=== PATIENT | female | born 1980 | race American Indian/Alaskan Native ===

== ENCOUNTER 2018-08-26 14:50 | Inpatient (IN) | payer BC, OTHER ==
[2018-08-26 15:53] LABS: SQUAMOUS EPITHIAL 1 /hpf (0-5); URINE BACTERIA RARE (<OCC); URINE BILIRUBIN NEGATIVE (NEGATIVE); URINE BLOOD NEGATIVE (NEGATIVE); URINE CLARITY Clear (Clear); URINE COLOR Yellow (YELLOW); URINE GLUCOSE (UA) NORMAL (Normal); URINE LEUKOCYTE ESTERASE TRACE Leu/uL (Negative); URINE PROTEIN NEGATIVE (NEGATIVE); URINE UROBILINOGEN NORMAL mg/dL (0.2-1.0)
[2018-08-26 16:01] LABS: BASO % 0.8 % (0.0-2.0); EOS # 0.3 K/uL (0.0-0.7); EOS % 4.7 % (0.0-4.0); HEMOGLOBIN 11.6 g/dL (11.0-16.0); LYMPH # 2.4 K/uL (1.0-4.3); LYMPH % 39.5 % (20.0-40.0); MEAN CELL VOLUME 84.7 fL (81.0-99.0); MEAN CORPUSCULAR HEMOGLOBIN 27.3 pg (27.0-31.0); MEAN CORPUSCULAR HGB CONC 32.2 g/dL (33.0-37.0); MEAN PLATELET VOLUME 8.3 fL (7.2-11.7); MONO # 0.5 K/uL (0.0-0.8); MONO % 8.6 % (0.0-10.0); NEUT # 2.9 K/uL (1.8-7.0); NEUT % 46.4 % (50.0-75.0); RBC 4.24 Mil/uL (3.80-5.20); RED CELL DISTRIBUTION WIDTH 15.7 % (11.5-14.5); WHITE BLOOD COUNT 6.1 K/uL (4.8-10.8)
[2018-08-26 16:14] LABS: BARBITURATES, UR NEGATIVE (NEGATIVE); BENZODIAZEPINES, UR NEGATIVE (NEGATIVE); PHENCYCLIDINE, UR NEGATIVE (NEGATIVE)
[2018-08-26 16:17] LABS: ALB/GLOB RATIO 1.4 (1.0-2.1); ALBUMIN 4.6 g/dL (3.5-5.0); ALT/SGPT 11 U/L (9-52); AST/SGOT 21 U/L (14-36); BLOOD UREA NITROGEN 16 mg/dL (7-17); CALCIUM 8.9 mg/dl (8.6-10.4); GFR NON-AFRICAN AMERICAN > 60
--- NOTE | 2018-08-26 16:25 | C.PDOC ---
History Of Present Illness 38 y/o female presents to the ED, sent by PMD for evaluation of feeling depressed and suicidal since 1 week ago. Denies any homicidal ideation. Denies drug use. Patient is unsure what may have triggered symptoms. She otherwise has no medical complaints. Time Seen by Provider: 08/26/18 15:27 Chief Complaint (Nursing): Psychiatric Evaluation History Per: Patient History/Exam Limitations: no limitations Onset/Duration Of Symptoms: Days Current Symptoms Are (Timing): Still Present Associated Symptoms: Depression, Suicidal Thoughts Involuntary Hold By: None Past Medical History Reviewed: Historical Data, Nursing Documentation, Vital Signs Vital Signs: Last Vital Signs Temp 97.6 F 08/26/18 15:04 Pulse 75 08/26/18 15:04 Resp 18 08/26/18 15:04 BP 137/85 08/26/18 15:04 Pulse Ox 97 08/26/18 15:04 - Medical History PMH: Anemia, Back Problems, Deep Vein Thrombosis, Hiatal Hernia, Hypercholesterolemia, Chronic Kidney Disease, Seizures (PSEUDOSEIZURES) Denies: Depression Surgical History: Endoscopy - [facility] Procedures CENTRAL VENOUS CATHETER PLACEMENT WITH GUIDANCE (02/15/15) DX ULTRASOUND-HEAD/NECK (07/28/14) ESOPHAGOGASTRODUODENOSCOPY [EGD] W/CLOSED BIOPSY (08/01/14) INJECT/INFUSE NEC (03/09/14) INJECT/INFUSE THROMBOLYTIC AGENT (02/25/15) OTH LYSIS-PERITONEAL ADHES (04/13/15) OTH REMOVE BOTH OVARIES/TUBES (04/13/15) OTHER AND UNSPECIFIED SUBTOTAL ABDOMINAL HYSTERECTOMY (04/13/15) PACKED CELL TRANSFUSION (04/13/15) PERCUTAN NEEDLE BX OF THYROID GLAND (07/28/14) URETERAL CATHETERIZATION (04/13/15) Family History: States: Unknown Family Hx - Social History Hx Tobacco Use: No Hx Alcohol Use: No Hx Substance Use: Yes - Immunization History Hx Tetanus Toxoid Vaccination: No Hx Influenza Vaccination: Yes Hx Pneumococcal Vaccination: No Review Of Systems Except As Marked, All Systems Reviewed And Found Negative. Constitutional: Negative for: Fever Cardiovascular: Negative for: Chest Pain Respiratory: Negative for: Shortness of Breath Gastrointestinal: Negative for: Vomiting, Diarrhea Neurological: Negative for: Weakness, Headache Psych: Positive for: Depression, Suicidal ideation Physical Exam - Physical Exam Appears: Well, Non-toxic, No Acute Distress Skin: Warm, Dry Head: Atraumatic, Normacephalic Eye(s): bilateral: Normal Inspection, PERRL, EOMI Neck: Normal ROM Chest: Symmetrical Cardiovascular: Rhythm Regular Respiratory: Normal Breath Sounds, No Accessory Muscle Use, Other (No respiratory distress) Gastrointestinal/Abdominal: Soft, No Tenderness, No Distention Extremity: Bilateral: Atraumatic, Normal Color And Temperature Neurological/Psych: Oriented x3 ED Course And Treatment - Laboratory Results Result Diagrams: 08/26/18 15:56 08/26/18 15:56 Lab Results: Total Bilirubin 0.3 mg/dL (0.2-1.3) 08/26/18 15:56 AST 21 U/L (14-36) 08/26/18 15:56 ALT 11 U/L (9-52) 08/26/18 15:56 Alkaline Phosphatase 54 U/L (38-126) 08/26/18 15:56 Total Protein 7.9 g/dL (6.3-8.3) 08/26/18 15:56 Albumin 4.6 g/dL (3.5-5.0) 08/26/18 15:56 Globulin 3.3 gm/dL (2.2-3.9) 08/26/18 15:56 Albumin/Globulin Ratio 1.4 (1.0-2.1) 08/26/18 15:56 Urine Color Yellow (YELLOW) 08/26/18 15:44 Urine Clarity Clear (Clear) 08/26/18 15:44 Urine pH 6.0 (5.0-8.0) 08/26/18 15:44 Ur Specific [place] 1.018 (1.003-1.030) 08/26/18 15:44 Urine Protein Negative mg/dL (NEGATIVE) 08/26/18 15:44 Urine Glucose (UA) Normal mg/dL (Normal) 08/26/18 15:44 Urine Ketones Negative mg/dL (NEGATIVE) 08/26/18 15:44 Urine Blood Negative (NEGATIVE) 08/26/18 15:44 Urine Nitrate Negative (NEGATIVE) 08/26/18 15:44 Urine Bilirubin Negative (NEGATIVE) 08/26/18 15:44 Urine Urobilinogen Normal mg/dL (0.2-1.0) 08/26/18 15:44 Ur Leukocyte Esterase Trace Isai/uL (Negative) 08/26/18 15:44 Urine WBC (Auto) 1 /hpf (0-5) 08/26/18 15:44 Ur Squamous Epith Cells 1 /hpf (0-5) 08/26/18 15:44 Urine Bacteria Rare (<OCC) 08/26/18 15:44 O2 Sat by Pulse Oximetry: 97 (RA) Pulse Ox Interpretation: Normal Medical Decision Making Medical Decision Making: Impression: Depression Plan: Labs ordered for medical clearance. rehabilitation worker to evaluate patient in the ED. Labs reviewed, U-tox negative. 16:40 Patient is medically cleared. Still pending final disposition from crisis Disposition Discussed With Dr.: Katelyn Jorgensen Doctor Will See Patient In The: Hospital Counseled Patient/Family Regarding: Studies Performed, Diagnosis - Disposition Disposition: HOSPITALIZED Disposition Time: 19:02 Condition: FAIR Forms: [facility] (Polish) - Clinical Impression Clinical Impression: Depression - Scribe Statement The provider has reviewed the documentation as recorded by the Yasmany Lopez Provider Attestation: All medical record entries made by the Yasmany were at my direction and personally dictated by me. I have reviewed the chart and agree that the record accurately reflects my personal performance of the history, physical exam, medical decision making, and the department course for this patient. I have also personally directed, reviewed, and agree with the discharge instructions and disposition.
[2018-08-26 16:41] LABS: OPIATES, UR NEGATIVE (NEGATIVE)
--- NOTE | 2018-08-26 22:30 | PCM.BM ---
<Gustavo James - Last Filed: 08/26/18 22:28> Treatment Plan Problems - Problems identified on initial assessmt Depression Date Initiated: 08/26/18 Time Initiated: 22:28 Assessment reference: NA Status: Active Suicidal Ideation Date Initiated: 08/26/18 Time Initiated: 22:29 Assessment reference: NA Status: Active Treatment assets and liabiliti Patient Assests: cooperative, self-reliant, ADL independent, negotiates basic needs, financial stabiity, cognitively intact Patient Liabilities: relationship conflicts (), substance abuse (Marijuana), medical problems (Total thyroidectomy, thyroid Cancer) - Milieu Protocol Maintain good personal hygiene: daily Encourage regular showers, daily Remind patient to perform daily oral care, every shift Assist patient to perform ADL's Conduct patient checks and document Observation sheet: Q15 minutes (For safety) Maintain personal safety: every shift Educate patient to report safety concerns to staff, every shift Monitor environment for contraband/sharps Medication safety: Monitor for expected outcome, potential side effects: every shift, Assess barriers to learning: every shift, Assess readiness for medication education: every shift <Mariel Neil - Last Filed: 08/27/18 14:10> Family Contact Family involvement: Famliy/SO not involved - Goals for Treatment Patient goals for treatment: "I need a therapist." Discharge/Continuing Care - Education Needs Education Needs: Patient Medication, Patient Coping Skills - Discharge Discharge Criteria: Tolerates medication w/o severe side effects, Reduction of target symptoms Discharge to:: Home - Treatment Team Participation Discussed with Family/SO: No Was Patient/Family/SO present at Treatment Team Meeting: Yes
[2018-08-27] MEDS: Levothyroxine 100 MCG TAB PO SCH (06:40)
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
[2018-08-27] MEDS: buPROPion 150 mg/24 Hours XL Tab PO SCH (12:20)
[2018-08-28] MEDS: Levothyroxine 100 MCG TAB PO SCH (06:39)
[2018-08-28] MEDS: buPROPion 150 mg/24 Hours XL Tab PO SCH (10:16)
--- NOTE | 2018-08-28 10:20 | PCM.PYCHPN ---
Psychiatric Progress Note - Psychiatric Progress Note Patient seen today, length of contact: 15 min Patient Chief Complaint: I am still feeling down Problems Identified/Issues Discussed: Patient seen and evaluated, chart reviewed and discussed with staff. Patient still reports depressed mood and at times feelings of hopelessness and helplessness. She reports improvement in sleep and appetite. She remained isolative and withdrawn and confined to room. She is taking medication but denies any side effects Supportive therapy was given Medication Change: Yes Medical Record Reviewed: Yes Mental Status Examination - Cognitive Function Orientation: Person, Place, Situation, Time Memory: Intact Attention: WNL Concentration: Poor Association: WNL Fund of Knowledge: Poor - Mood Mood: Depressed, Anxious - Affect Affect: Broad - Speech Speech: Soft - Formal Thought Process Formal Thought Process: No Impairment - Suicidal Ideation Suicidal Ideation: No - Homicidal Ideation Homicidal Ideation: No Goal/Treatment Plan - Goal/Treatment Plan Need for Continued Stay: Severe depression anxiety, Severe functional impairment Progress Toward Problem(s) and Goals/Treatment Plan: Major depression, single, severe Wellbutrin for depression Continue Levothyroxine 100mg for hypothyroidism 2/2 thyroidectomy As need medications Atarax, Motrin, Trazodone, and Ambien All risks, benefits and alternatives of the meds discussed, and the pt agreed and understood. Attend groups and activities Individual therapy daily Psychoeducation and support daily Encourage compliance with meds and after care Refer to outpatient program at [facility] Teach healthy lifestyle methods, i.e. diet, exercise, meditation Smoking cessation and patch if needed - Smoking Cessation Smoking Cessation Initiated: No
[2018-08-28 16:16] VITALS: O2SAT 82
[2018-08-29] MEDS: Levothyroxine 100 MCG TAB PO SCH (06:07)
[2018-08-29] MEDS: buPROPion 150 mg/24 Hours XL Tab PO SCH (09:37)
--- NOTE | 2018-08-29 15:24 | PCM.PYCHPN ---
Psychiatric Progress Note - Psychiatric Progress Note Patient seen today, length of contact: 15 min Patient Chief Complaint: I am feeling much better. Can I be discharged today. Problems Identified/Issues Discussed: Patient seen, chart reviewed, case discussed with the staff. Issues related to illness and treatment were discussed with the patient and staff. Reported compliant with treatment with no adverse effects. Tolerating treatment very well. Patient was calm and cooperative. Awake, alert and oriented x3. Mood reported as good. Affect appropriate. Patient already has signed 48-hour notice for discharge from the hospital, which will end tomorrow. Requested to reascend the 48-hour notice to stay and complete treatment, patient refused. At the time of her evaluation, patient denied any delusions, auditory or visual hallucinations, no suicidal ideations or homicidal ideations. Medical Problems: Hypothyroidism secondary to thyroidectomy Diagnostic Results: Reviewed DSM 5 Symptoms Update: Some improvement with treatment. Medication Change: No Medical Record Reviewed: Yes Mental Status Examination - Cognitive Function Orientation: Person, Place, Situation, Time Memory: Intact Attention: WNL Concentration: WNL Association: WN Fund of Knowledge: [facility] Decription of patient's judgement and insights: Poor - Mood Mood: Neutral - Affect Affect: Other (Appropriate) - Speech Speech: Soft - Formal Thought Process Formal Thought Process: No Impairment Psychotic Thoughts and Behaviors: None - Suicidal Ideation Suicidal Ideation: No - Homicidal Ideation Homicidal Ideation: No Goal/Treatment Plan - Goal/Treatment Plan Need for Continued Stay: Discharge may exacerbated symptoms, Severe functional impairment Progress Toward Problem(s) and Goals/Treatment Plan: Some improvement with treatment. Patient education. Supportive therapy. Continue treatment as before. Estimated Date of D/C: 08/30/18 - Smoking Cessation Smoking Cessation Initiated: No
[2018-08-30] MEDS: Levothyroxine 100 MCG TAB PO SCH (06:11)
[2018-08-30 06:38] VITALS: BP 104/71; PULSE 72; RESP 16; TEMP 97.5
[2018-08-30] MEDS: buPROPion 150 mg/24 Hours XL Tab PO SCH (09:36)
== END 2018-08-30 13:57 | disposition home or self-care (01) | DRG 885 ==
LOC: C.ER 14:50 → C.5E 19:01
PROVIDERS: ADMIT Psychiatry & Neurology Psychiatry; ATTEND Psychiatry & Neurology Psychiatry
DX: F32.2 Major depressive disorder, single episode, severe without psychotic features (principal); E89.0 Postprocedural hypothyroidism; Z62.810 Personal history of physical and sexual abuse in childhood